=== PATIENT | male | born 1950 | race Caucasian/White ===

== ENCOUNTER 2018-03-08 08:40 | Emergency (ER) | payer OTHER ==
[~2018-03-08] VITALS: Ht 180.3 cm; Wt 90.7 kg
[~2018-03-08 08:40] MED LIST: ACET325 PO; DIAZ10 PO; Depo-Testo100 MG/1 M IM; Desyrel150 MG; EZET10-20 PO; IBUP800 PO; MARIJUANA; OMEP20ER PO; PRAV20 PO; Percocet 5-3251 EACH PO; ROSU10TA PO; TRAM50 PO; TRINATE PO
[2018-03-08 09:14] LABS: BASOPHILS ABSOLUTE AUTO 0.02 K/mm3 (0.00-0.23); BASOPHILS PERCENT AUTO 0 % (0-2); EOSINOPHILS ABSOLUTE AUTO 0.04 K/mm3 (0.00-0.68); EOSINOPHILS PERCENT AUTO 1 % (0-6); IMMATURE GRAN ABSOLUTE AUTO 0.01 K/mm3 (0.00-0.10); IMMATURE GRAN PERCENT AUTO 0 % (0-1); LYMPHOCYTES ABSOLUTE AUTO 0.72 K/mm3 (0.84-5.20); LYMPHOCYTES PERCENT AUTO 15 % (21-46); MONOCYTES ABSOLUTE AUTO 0.44 K/mm3 (0.16-1.47); MONOCYTES PERCENT AUTO 9 % (4-13); Mean Corpuscular HGB Conc 33.3 g/dL (31.5-36.5); Mean Platelet Volume 9.7 fL (9.1-12.4); NEUTROPHILS ABSOLUTE AUTO 3.71 K/mm3 (1.96-9.15); NEUTROPHILS PERCENT AUTO 75 % (41-73); Platelet Count 169 K/mm3 (150-400); RDW Coefficient Variation 18.1 % (11.7-14.2); RDW Standard Deviation 49.3 fL (35.1-46.3); Red Blood Cell Count 5.19 M/mm3 (4.30-5.90); White Blood Cell Count 4.94 K/mm3 (4.00-11.30)
[2018-03-08 09:28] LABS: Mean Corpuscular Volume 81 fL (80-100)
[2018-03-08 09:36] LABS: Albumin, Blood 3.8 g/dL (3.4-5.0); Albumin/Globulin Ratio 0.9 (0.8-1.8); Bilirubin, Total 0.7 mg/dL (0.1-1.0); Bun/Creatinine Ratio 16.7 (12.0-20.0); Calcium, Blood 9.2 mg/dL (8.5-10.1); Creatinine, Blood 1.56 mg/dL (0.60-1.20); Globulin, Blood 4.2 g/dL (2.2-4.0); Potassium, Blood 3.7 mmol/L (3.5-5.5)
[2018-03-08] MEDS ORDERED: CLOT10 SS (10:05)
[2018-03-08] MEDS ORDERED: ONDA8 PO (10:23)
[2018-03-08] MEDS ORDERED: MELA3 PO (10:23)
[2018-03-08] MEDS ORDERED: METO10 PO (10:24)
== END 2018-03-08 10:44 | disposition home or self-care (01) ==
LOC: ER 08:40
PROVIDERS: Emergency Medicine
DX: E86.0 Dehydration (principal); B37.0 Candidal stomatitis; R63.4 Abnormal weight loss; Z88.5 Allergy status to narcotic agent; Z88.6 Allergy status to analgesic agent; Z79.899 Other long term (current) drug therapy; Z87.891 Personal history of nicotine dependence; Z68.27 Body mass index [BMI] 27.0-27.9, adult
CPT/HCPCS: 36415; 71046; 80053; 85025; 96360; 99283-25; J7030

== ENCOUNTER 2018-04-19 12:08 | Observation (INO) | payer OTHER ==
[~2018-04-19] VITALS: Ht 177.8 cm; Wt 73.1 kg
[~2018-04-19 12:08] MED LIST changes: +CLOT10 SS; +MELA3 PO; +METO10 PO; +ONDA8 PO
[2018-04-19 13:11] LABS: BASOPHILS ABSOLUTE AUTO 0.02 K/mm3 (0.00-0.23); BASOPHILS PERCENT AUTO 1 % (0-2); EOSINOPHILS ABSOLUTE AUTO 0.04 K/mm3 (0.00-0.68); EOSINOPHILS PERCENT AUTO 1 % (0-6); Hematocrit 36.2 % (37.0-53.0); IMMATURE GRAN ABSOLUTE AUTO 0.03 K/mm3 (0.00-0.10); IMMATURE GRAN PERCENT AUTO 1 % (0-1); LYMPHOCYTES ABSOLUTE AUTO 0.43 K/mm3 (0.84-5.20); LYMPHOCYTES PERCENT AUTO 10 % (21-46); MONOCYTES ABSOLUTE AUTO 0.42 K/mm3 (0.16-1.47); MONOCYTES PERCENT AUTO 10 % (4-13); Mean Corpuscular HGB 28.2 pg (26.0-34.0); Mean Corpuscular HGB Conc 33.1 g/dL (31.5-36.5); Mean Corpuscular Volume 85 fL (80-100); Mean Platelet Volume 9.9 fL (9.1-12.4); NEUTROPHILS ABSOLUTE AUTO 3.34 K/mm3 (1.96-9.15); NEUTROPHILS PERCENT AUTO 78 % (41-73); Platelet Count 220 K/mm3 (150-400); RDW Coefficient Variation 21.9 % (11.7-14.2); RDW Standard Deviation 66.6 fL (35.1-46.3); Red Blood Cell Count 4.26 M/mm3 (4.30-5.90); White Blood Cell Count 4.28 K/mm3 (4.00-11.30)
[2018-04-19] MEDS ORDERED: OXYC1L PO (15:34)
[2018-04-19 15:39] LABS: Albumin, Blood 3.9 g/dL (3.4-5.0); Albumin/Globulin Ratio 0.8 (0.8-1.8); Bilirubin, Total 0.5 mg/dL (0.1-1.0); Bun/Creatinine Ratio 19.2 (12.0-20.0); Calcium, Blood 9.4 mg/dL (8.5-10.1); Creatinine, Blood 2.13 mg/dL (0.60-1.20); Globulin, Blood 4.6 g/dL (2.2-4.0); Potassium, Blood 4.4 mmol/L (3.5-5.5); Total Protein, Blood 8.5 g/dL (6.4-8.2)
--- NOTE | 2018-04-19 18:15 | NUR ---
SUMMARY PT ADMITTED FROM THE ER, PT IS ALERT AND ORIENTED, IS A ONE PERSON ASSIST, PT'S SPOUSE IN THE ROOM, PT TO HAVE A GI CONSULT FOR A FEEDING TUBE, NOT CALLED YET, PT HAS BEEN ORIENTED TO THE ROOM AND CALL SYSTEM, PT IS COOPERATIVE WITH CARE, VSS, NO ACUTE CHANGES, WILL CONT TO MONITOR
--- NOTE | 2018-04-20 04:07 | NUR ---
SHIFT SUMMARY: PT IS ALERT AND ORIENTED. PT IS CALM AND COOPERATIVE WITH CARE. PT CALLS APPROPRIATELY. STAYED IN THE ROOM OVERNIGHT. CALLED DR. ALMANZA TO GET SOME OF HIS HOME MEDICATIONS ORDERED. PT REPORTS LOW BACK PAIN, GAVE PRN OXYCODONE. PT DENIES NAUSEA, VOMITING, AND SOB. PT SLEPT MUCH OF THE NIGHT WHEN NOT DISTURBED. NO ACUTE CHANGES OR COMPLICATIONS THIS SHIFT. WILL REPORT TO DAY NURSE.
[2018-04-20 05:09] LABS: BASOPHILS ABSOLUTE AUTO 0.03 K/mm3 (0.00-0.23); BASOPHILS PERCENT AUTO 1 % (0-2); EOSINOPHILS ABSOLUTE AUTO 0.05 K/mm3 (0.00-0.68); EOSINOPHILS PERCENT AUTO 2 % (0-6); Hemoglobin 10.1 g/dL (13.5-17.5); IMMATURE GRAN ABSOLUTE AUTO 0.04 K/mm3 (0.00-0.10); IMMATURE GRAN PERCENT AUTO 1 % (0-1); LYMPHOCYTES PERCENT AUTO 9 % (21-46); MONOCYTES ABSOLUTE AUTO 0.41 K/mm3 (0.16-1.47); MONOCYTES PERCENT AUTO 12 % (4-13); Mean Corpuscular HGB 28.4 pg (26.0-34.0); Mean Corpuscular HGB Conc 33.7 g/dL (31.5-36.5); Mean Corpuscular Volume 84 fL (80-100); Mean Platelet Volume 9.9 fL (9.1-12.4); NEUTROPHILS PERCENT AUTO 76 % (41-73); Platelet Count 173 K/mm3 (150-400); RDW Coefficient Variation 21.6 % (11.7-14.2); RDW Standard Deviation 65.9 fL (35.1-46.3); Red Blood Cell Count 3.56 M/mm3 (4.30-5.90); White Blood Cell Count 3.43 K/mm3 (4.00-11.30)
[2018-04-20 05:46] LABS: Bun/Creatinine Ratio 21.1 (12.0-20.0); Calcium, Blood 8.2 mg/dL (8.5-10.1); Creatinine, Blood 1.8 mg/dL (0.60-1.20); Potassium, Blood 4.2 mmol/L (3.5-5.5)
--- NOTE | 2018-04-20 11:47 | NUR ---
PATIENT GAVE CLINICAL ATHLETIC INSTRUCTOR PERMISSION TO CARE FOR HIM ON 04/21/18.
--- NOTE | 2018-04-20 11:47 | NUR ---
Spiritual care visit conducted. Patient and spouse welcomed me into the room after I introduced myself and the department I am from. Patient shared his story and admitted the weariness emotionally because of the health battles he has faced. I facilitated a life review, encouraged self-care and reinforced helpful attitudes and practices. I also asked if patient had filled out an advance directive and patient said that he had not. His spouse said that she recently went through the process for herself and would be more than willing to help the patient fill out the advance directive form. I asked questions to make sure there was a good understanding of the importance and the process and there was a solid understanding. I gave the patient the advance directive forms and they said they would take the time to work through it. They thanked me for the visit and the information.
--- NOTE | 2018-04-20 17:45 | NUR ---
SUMMARY PT SITTING UP IN BED EATING HIS DINNER, SPOUSE REMAINS AT THE BEDSIDE, PT HAS BEEN PLEASANT AND COOPERATIVE WITH CARE, HAS WORKED WITH THERAPY TODAY WELL, DR HURTADO HAS BEEN IN TO SEE THE PT AND PLAN TO PLACE A PEG TUBE TOMORROW, PT TO BE NPO AFTER MIDNIGHT, PT MED PER EMAR FOR PAIN, VSS, NO ACUTE CHANGES, WILL CONT TO MONITOR
--- NOTE | 2018-04-21 04:41 | NUR ---
SHIFT SUMMARY NO CHANGES TO REPORT THIS SHIFT. PT HAS RESTED MOST OF THE NIGHT. HE DECLINES ANYTHING FOR HIS CHRONIC PAIN. PT HAS MOSTLY BEEN INDEPENDENT IN THE ROOM AND CALLS WHENEVER HE NEEDS ASSISTANCE. PLAN IS FOR PLACEMENT OF PEG TUBE TODAY. PT AWARE OF POC AND HAS BEEN NPO SINCE MIDNIGHT. PT S/O AT BEDSIDE T/O THE NIGHT. WILL CONTINUE TO MONITOR AND REPORT TO ONCOMING RN.
[2018-04-21 07:52] LABS: Bun/Creatinine Ratio 16.3 (12.0-20.0); Calcium, Blood 8.5 mg/dL (8.5-10.1); Creatinine, Blood 1.47 mg/dL (0.60-1.20); Potassium, Blood 4.2 mmol/L (3.5-5.5)
--- NOTE | 2018-04-21 17:30 | NUR ---
AT 1730 PATIENT LEFT FOR PEG TUBE PLACEMENT. NO ACUTE ISSUES NOTED UPON LEAVING FOR PROCEDURE.
--- NOTE | 2018-04-21 17:35 | NUR ---
BROUGHT TO [facility] FROM MED FLOOR. VSS ADMISSION STARTED FOR PROCEDURES
--- NOTE | 2018-04-21 18:11 | NUR ---
04/21/18 1811 Shahram Avila See Anesthesia recordO2 VIA N/C INTACT THROUGHOUT SEDATION/PROCEDURE. MONITOR INTACT WITH CONTINUOUS PULSE OXIMETRY AND INTERMITTENT BP. Patient to ENDO 1MONITOR INTACT WITH CONTINUOUS PULSE OXIMETRY AND INTERMITTENT BP.
--- NOTE | 2018-04-21 21:32 | NUR ---
phsyician correspondence 2015 PER SX ORDERS OK TO USE PEG TUBE AFTER 4 HOURS OF PLACEMENT. PT REQUESTING SOMETHING TO DRINK. NO ORDERS PLACED BY GI SURGEON STATING NPO. HOSPITALIST STATED TO CALL GI SURGEON FOR DIET ORDER VERIFICATION.
--- NOTE | 2018-04-21 21:33 | NUR ---
Physician Correspondence 2020 SPOKE WITH GI SURGEON TO CLARIFY DIET ORDER. SURGEON STATED COULD REMAIN ON LIMITED CLEAR LIQUIDS AT THIS TIME.
--- NOTE | 2018-04-22 04:30 | NUR ---
SHIFT SUMMARY A/O, ABLE TO MAKE NEEDS KNOWN. COOPERATIVE WITH CARE. CALLS AND ANSWERS QUESTIONS APPROPRIATELY. C/O PAIN TO ABDOMEN RATED 8-10/10 THROUGHOUT SHIFT; MEDICATED PER EMAR. RECEIVED NEW ORDER AT BEGINNING OF SHIFT R/T SEVERE PAIN; ORDER FOR FENTANYL 25-50 MG Q2H. EXPLAINED TO PT WHAT TIME HIS FEEDINGS WOULD BEGIN THIS SHIFT IF HE CHOSE TO START THEM AFTER 4 HOURS. PT STATED HE WOULD BE SLEEPING AND DID NOT WANT TO START AT THAT TIME. AT BEDSIDE. NO ACUTE CHANGES NOTED OTHER THAN SOME HYPOTENSION DURING POST-OP VITALS. BED IN LOWEST POSITION. CALL LIGHT AND BELONGINGS WITHIN REACH. WCTM. REPORT TO ONCOMING RN.
[2018-04-22 05:21] LABS: Hematocrit 29.7 % (37.0-53.0); Mean Corpuscular HGB 28.3 pg (26.0-34.0); Mean Corpuscular HGB Conc 33.7 g/dL (31.5-36.5); Mean Corpuscular Volume 84 fL (80-100); Mean Platelet Volume 9.7 fL (9.1-12.4); Platelet Count 151 K/mm3 (150-400); RDW Coefficient Variation 21.3 % (11.7-14.2); RDW Standard Deviation 64.6 fL (35.1-46.3); Red Blood Cell Count 3.53 M/mm3 (4.30-5.90); White Blood Cell Count 5.16 K/mm3 (4.00-11.30)
--- NOTE | 2018-04-22 05:27 | NUR ---
0520 PT STATED THAT HE DID NOT WANT TO START HIS TUBE FEEDINGS YET. STATED THAT HIS ABDOMEN IS TOO SORE. PAIN MANAGEMENT HAS BEEN DIFFICULT AND HAS NOT SLEPT WELL OVERNIGHT.
[2018-04-22 05:52] LABS: Magnesium, Blood 1.6 mg/dL (1.6-2.4)
[2018-04-22 05:53] LABS: Bun/Creatinine Ratio 14.7 (12.0-20.0); Calcium, Blood 8.2 mg/dL (8.5-10.1); Creatinine, Blood 1.5 mg/dL (0.60-1.20); Phosphorus, Blood 2.8 mg/dL (2.5-4.9); Potassium, Blood 4.3 mmol/L (3.5-5.5)
--- NOTE | 2018-04-22 16:39 | NUR ---
REMOVED ABDOMINAL BINDER, OKAYED BY DR. CORREIA.
--- NOTE | 2018-04-22 19:18 | NUR ---
shift summary PATIENT STARTED THE DAY WITH CONTINUOUS FEEDS. TOLERATED THIS WELL. STARTED THE 1600 TUBE FEED AND AFTER 10 MINUTES STATED HE FELT FULL. THIS RN HELD THE TUBE FEEDING, CHECKED FOR RESIDUAL, NOTED IT TO BE AROUND 20CC PULLED INTO SYRINGE. PER PATIENT REQUEST HELD REST OF 1600 TUBE FEEDING. WILL GIVE 2000 BOLUS PER SCHEDULE. PATIENT IS HAVING ABDOMINAL PAIN. MEDICATING PER EMAR. WORKING TO GET ON A SCHEDULE TO TRANSITION TO ORAL PAIN MEDS FOR PAIN RELIEF. REQUESTING AN ADVANCEMENT IN DIET. CONTINUING CLEAR LIQUIDS AT THIS TIME THEN WILL FOLLOW UP WITH HOSPITALIST IN AM REGARDING DIET. PATIENT ABLE TO MAKE NEEDS KNOWN. CONTINUING TO GIVE INFORMATION REGARDING TUBE FEEDING WITH PATIENT AND FAMILY. APPEARS MINMIAL UNDERSTANDING AT THIS TIME. WORKING TO INTRODUCE TOPICS AND INFORMATION. WILL CONTINUE TO GRADUALLY INCREASE KNOWLEDGE AND PROVIDE TEACHING.
--- NOTE | 2018-04-23 04:58 | NUR ---
SHIFT SUMMARY PT ADMITTED FOR ACUTE KIDNEY FAILURE. FULL CODE. CLEAR LIQUID DIET. 20G IV TO R AC. MEDS WHOLE WITH WATER. INDEPENDENT TO STANDBY ASSIST WITH TRANSFERS. ELEVATE HOB 45 DEGRESS. AMBULATE 3 TIMES PER DAY IN [place] WITH WLREINIER AND SBA. CBG Q 6 UNTIL 70-180 CONSISTENTLY. 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 PT HAS NOTED PROGRESSIVE DECLINE IN INTAKE WITH DEHYDRATION AND WEIGHT LOSS. PE TUBE PLACED AND WAS ON CONTINUOUS FEEDS BUT IS NOW ON BOLUS FEEDS IN AN ATTEMPT TO PREPARE THE PT TO DISCHARGE HOME. THE DIRECTIONS FOR THE BOLUS FEEDS ARE IN THE CHART. THE PT APPEARED TO BE VERY COMFORTABLY SO FAR THIS SHIFT. ADMINISTERED PAIN MEDS X2. PT AND SLEPT THROUGH TUBE FEEDING BOLUS FEEDS X2 AND CONTINUE TO SLEEP COMFORTABLY AT THIS TIME. NO APPARENT SIGNS OF ACUTE DISTRESS. ABLE TO MAKE NEEDS KNOWN AND CALL LIGHT IN REACH.
[2018-04-23] MEDS ORDERED: ACET325 PO (15:22)
--- NOTE | 2018-04-23 16:04 | NUR ---
DISCHARGE PATIENT DISCHARGED WITH VIA W/C ESCORT BY LEIGHTON GRAY. THIS RN WORKED WITH PATIENT AND REGARDING TUBE FEEDING. AND PATIENT WERE ABLE TO DEMONSTRATE ABILITIES. VERBALIZED UNDERSTANDING. WE DISCUSSED THE EDUCATION PROVIDED BY THE MARKETING PLANNER REGARDING THE FEEDINGS REQUIRED OF THE PATIENT. STATED THIS IS SUPPLEMENTAL FEEDING AND PATIENT CAN EAT TOLERATED. USE TUBE FEEDING SUPPLEMENTATION. PATIENT HAD NO FURTHER QUESTIONS. ENCOURAGED CALLING. TALKING WITH HOME HEALTH NURSE AND FOLLOWING UP WITH [facility] IF THEY HAVE ANY QUESTIONS REGARDING HIS CARE. THEY VERBALIZED UNDERSTANDING OF THIS.
== END 2018-04-23 15:43 | disposition home health service (06) ==
LOC: ER 12:08 → MEDS 12:09 → ER 16:38 → MEDS 16:43 → ER 16:43 → MEDS 16:45
PROVIDERS: Physician Assistant; Student in an Organized Health Care Education/Training Program; ADMIT Internal Medicine
PROC: 0DH63UZ Insertion of Feeding Device into Stomach, Percutaneous Approach (ICD-10-PCS; principal; 2018-04-21 18:25)
DX: R13.10 Dysphagia, unspecified (principal); R62.7 Adult failure to thrive; R63.4 Abnormal weight loss; E46 Unspecified protein-calorie malnutrition; K44.9 Diaphragmatic hernia without obstruction or gangrene; N17.9 Acute kidney failure, unspecified; N18.9 Chronic kidney disease, unspecified; C76.0 Malignant neoplasm of head, face and neck; Z74.09 Other reduced mobility
CPT/HCPCS: 36415; 80048; 80053; 82947; 83735; 84100; 85025; 85027; 90686; 96374; 96375; 96376; 97116; 97161; 99284; C1769; G0378; J0690; J2405; J3010; J3370; J7120

== ENCOUNTER 2018-09-08 16:11 | Emergency (ER) | payer OTHER ==
[~2018-09-08] VITALS: Ht 180.3 cm; Wt 69.0 kg
[~2018-09-08 16:11] MED LIST changes: +OXYC1L PO
[2018-09-08 18:16] LABS: BASOPHILS ABSOLUTE AUTO 0.03 K/mm3 (0.00-0.23); BASOPHILS PERCENT AUTO 1 % (0-2); EOSINOPHILS ABSOLUTE AUTO 0.16 K/mm3 (0.00-0.68); EOSINOPHILS PERCENT AUTO 3 % (0-6); Hematocrit 33.7 % (37.0-53.0); Hemoglobin 11.2 g/dL (13.5-17.5); IMMATURE GRAN ABSOLUTE AUTO 0.01 K/mm3 (0.00-0.10); IMMATURE GRAN PERCENT AUTO 0 % (0-1); LYMPHOCYTES ABSOLUTE AUTO 0.83 K/mm3 (0.84-5.20); LYMPHOCYTES PERCENT AUTO 16 % (21-46); MONOCYTES ABSOLUTE AUTO 0.46 K/mm3 (0.16-1.47); MONOCYTES PERCENT AUTO 9 % (4-13); Mean Corpuscular HGB 32.3 pg (26.0-34.0); Mean Corpuscular HGB Conc 33.2 g/dL (31.5-36.5); Mean Corpuscular Volume 97 fL (80-100); Mean Platelet Volume 9.9 fL (9.1-12.4); NEUTROPHILS ABSOLUTE AUTO 3.69 K/mm3 (1.96-9.15); NEUTROPHILS PERCENT AUTO 71 % (41-73); Platelet Count 261 K/mm3 (150-400); RDW Coefficient Variation 12.6 % (11.7-14.2); RDW Standard Deviation 44.7 fL (35.1-46.3); Red Blood Cell Count 3.47 M/mm3 (4.30-5.90); White Blood Cell Count 5.18 K/mm3 (4.00-11.30)
[2018-09-08 18:50] LABS: Alanine Aminotransfer (ALT/SGP 35 U/L (12-78); Albumin, Blood 4.2 g/dL (3.4-5.0); Albumin/Globulin Ratio 1.1 (0.8-1.8); Alk Phos 185 U/L (50-136); Anion Gap 5 mmol/L (6-16); Aspartate Aminotrans (AST/SGOT 28 U/L (12-37); Bilirubin, Total 0.3 mg/dL (0.1-1.0); Blood Urea Nitrogen 29 mg/dL (8-24); Bun/Creatinine Ratio 22.1 (12.0-20.0); CO2, Blood 27 mmol/L (21-32); Calcium, Blood 9.3 mg/dL (8.5-10.1); Chloride, Blood 104 mmol/L (98-108); Creatinine, Blood 1.31 mg/dL (0.60-1.20); Globulin, Blood 3.9 g/dL (2.2-4.0); Glomerular Filtration Rate 58 (60-); Glucose, Blood 112 mg/dL (70-99); Potassium, Blood 3.8 mmol/L (3.5-5.5); Sodium, Blood 136 mmol/L (136-145); Total Protein, Blood 8.1 g/dL (6.4-8.2); Troponin I <0.015 ng/mL (0.000-0.040)
[2018-09-13] MEDS ORDERED: Pravachol80 MG PO (14:53)
[2018-09-13] MEDS ORDERED: OMEPRAZOLE20 MG PO (14:53)
[2018-09-13] MEDS ORDERED: IBUP800 PO (14:54)
[2018-09-13] MEDS ORDERED: DIAZ10 (14:54)
[2018-09-13] MEDS ORDERED: TRAZ150T57 PO (14:55)
[2018-09-13] MEDS ORDERED: VOLTAREN100 GM (14:55)
[2018-09-13] MEDS ORDERED: MELATONIN5 M1 PO (14:55)
[2018-09-13] MEDS ORDERED: Depo-Testos200 MG/ML IM (14:56)
[2018-09-13] MEDS ORDERED: Multiple Vitam1 EAC1 PO (14:56)
[2018-09-13] MEDS ORDERED: METO10 PO (14:56)
[2018-09-13] MEDS ORDERED: ONDA8 PO (14:56)
[2018-09-13] MEDS ORDERED: OXYC10ER PO (14:57)
[2018-09-13] MEDS ORDERED: QVAR REDIHALE10.6 G1 INH (14:58)
[2018-09-13] MEDS ORDERED: Clonazepam0.5 MG PO (14:58)
[2018-11-04] MEDS ORDERED: OMEP20ER PO (09:00)
[2018-11-04] MEDS ORDERED: Pravachol80 MG PO (09:02)
[2018-11-04] MEDS ORDERED: IBUP800 PO (09:03)
[2018-11-04] MEDS ORDERED: Diazepam5 MG PO (09:05)
[2018-11-04] MEDS ORDERED: Trazodone HCl300 MG PO (09:05)
[2018-11-04] MEDS ORDERED: MELA3 PO (09:06)
[2018-11-04] MEDS ORDERED: Voltaren100 GM TOP (09:07)
[2018-11-04] MEDS ORDERED: Depo-Testos200 MG/ML IM (09:08)
[2018-11-04] MEDS ORDERED: Hair, Skin & N1 EACH PO (09:09)
[2018-11-04] MEDS ORDERED: Zofran4 MG PO (09:11)
[2018-11-04] MEDS ORDERED: METO10 PO (09:14)
[2018-11-04] MEDS ORDERED: OXYC10TA19 PO (09:16)
[2018-11-04] MEDS ORDERED: CLON.5 PO (09:32)
== END 2018-09-08 19:42 | disposition home or self-care (01) ==
LOC: ER 16:11
PROVIDERS: Emergency Medicine
DX: R55 Syncope and collapse (principal); M54.9 Dorsalgia, unspecified; G89.29 Other chronic pain; Z93.1 Gastrostomy status; Z88.0 Allergy status to penicillin; Z88.5 Allergy status to narcotic agent; Z88.6 Allergy status to analgesic agent; Z79.899 Other long term (current) drug therapy; Z87.891 Personal history of nicotine dependence
CPT/HCPCS: 36415; 70450; 74018; 80053; 84484; 85025; 93005; 93010; 99284-25; J7030

== ENCOUNTER 2018-09-20 08:24 | Day surgery (SDC) | payer OTHER ==
[~2018-09-20] VITALS: Ht 180.3 cm; Wt 70.3 kg
[~2018-09-20 08:24] MED LIST changes: +Clonazepam0.5 MG PO; +DIAZ10; +Depo-Testos200 MG/ML IM; +MELATONIN5 M1 PO; +Multiple Vitam1 EAC1 PO; +OMEPRAZOLE20 MG PO; +OXYC10ER PO; +Pravachol80 MG PO; +QVAR REDIHALE10.6 G1 INH; +TRAZ150T57 PO; +VOLTAREN100 GM
--- NOTE | 2018-09-20 09:27 | NUR ---
09/20/18 0927 Shellie Caal PT. DENIES PAIN BUT VERBALIZES HAVING A SORE THROAT SINCE HIS DIAGNOSIS OF CANCER.
[2018-11-04] MEDS ORDERED: OMEP20ER PO (09:00)
[2018-11-04] MEDS ORDERED: Pravachol80 MG PO (09:02)
[2018-11-04] MEDS ORDERED: IBUP800 PO (09:03)
[2018-11-04] MEDS ORDERED: Trazodone HCl300 MG PO (09:05)
[2018-11-04] MEDS ORDERED: Diazepam5 MG PO (09:05)
[2018-11-04] MEDS ORDERED: MELA3 PO (09:06)
[2018-11-04] MEDS ORDERED: Voltaren100 GM TOP (09:07)
[2018-11-04] MEDS ORDERED: Depo-Testos200 MG/ML IM (09:08)
[2018-11-04] MEDS ORDERED: Hair, Skin & N1 EACH PO (09:09)
[2018-11-04] MEDS ORDERED: Zofran4 MG PO (09:11)
[2018-11-04] MEDS ORDERED: METO10 PO (09:14)
[2018-11-04] MEDS ORDERED: OXYC10TA19 PO (09:16)
[2018-11-04] MEDS ORDERED: CLON.5 PO (09:32)
== END 2018-09-20 09:58 | disposition home or self-care (01) ==
LOC: ORSCSDS 08:24
PROVIDERS: Student in an Organized Health Care Education/Training Program
PROC: 0DB98ZX Excision of Duodenum, Via Natural or Artificial Opening Endoscopic, Diagnostic (ICD-10-PCS; principal; 2018-09-20 11:15)
PROC: 0DB68ZX Excision of Stomach, Via Natural or Artificial Opening Endoscopic, Diagnostic (ICD-10-PCS; principal; 2018-09-20 11:15)
DX: R10.9 Unspecified abdominal pain (principal); C09.9 Malignant neoplasm of tonsil, unspecified; K21.9 Gastro-esophageal reflux disease without esophagitis; E78.5 Hyperlipidemia, unspecified; K44.9 Diaphragmatic hernia without obstruction or gangrene; K29.70 Gastritis, unspecified, without bleeding; K29.80 Duodenitis without bleeding; J44.9 Chronic obstructive pulmonary disease, unspecified; Z87.891 Personal history of nicotine dependence; Z79.899 Other long term (current) drug therapy
CPT/HCPCS: 88305; 88342; J2704; J7120

== ENCOUNTER 2018-10-11 09:53 | Day surgery (SDC) | payer OTHER ==
[~2018-10-11] VITALS: Ht 182.9 cm; Wt 71.5 kg
--- NOTE | 2018-10-11 10:51 | NUR ---
10/11/18 1051 Gui Sims IV ATTEMPTED IN LEFT HAND AND LEFT FOREARM AND WOULD NOT THREAD. IV STARTED IN LEFT FOREARM AND PATIENT TOLERATED WELL.
--- NOTE | 2018-10-11 12:46 | NUR ---
10/11/18 1246 Perla Bonds RECIEVED REPORT FROM [facility]
--- NOTE | 2018-10-11 13:20 | NUR ---
10/11/18 1320 Perla Bonds PT INTO RECLINER WITHOUT DIFFICULTY. PT DENIES PAIN AND NAUSEA. PT TOLERATING PO FLUIDS AND SNACKS WELL. JE AT CHAIRSIDE.
[2018-11-04] MEDS ORDERED: OMEP20ER PO (09:00)
[2018-11-04] MEDS ORDERED: Pravachol80 MG PO (09:02)
[2018-11-04] MEDS ORDERED: IBUP800 PO (09:03)
[2018-11-04] MEDS ORDERED: Trazodone HCl300 MG PO (09:05)
[2018-11-04] MEDS ORDERED: Diazepam5 MG PO (09:05)
[2018-11-04] MEDS ORDERED: MELA3 PO (09:06)
[2018-11-04] MEDS ORDERED: Voltaren100 GM TOP (09:07)
[2018-11-04] MEDS ORDERED: Depo-Testos200 MG/ML IM (09:08)
[2018-11-04] MEDS ORDERED: Hair, Skin & N1 EACH PO (09:09)
[2018-11-04] MEDS ORDERED: Zofran4 MG PO (09:11)
[2018-11-04] MEDS ORDERED: METO10 PO (09:14)
[2018-11-04] MEDS ORDERED: OXYC10TA19 PO (09:16)
[2018-11-04] MEDS ORDERED: CLON.5 PO (09:32)
== END 2018-10-11 13:30 | disposition home or self-care (01) ==
LOC: ORSCSDS 09:53
PROVIDERS: Otolaryngology
PROC: 0CBM8ZX Excision of Pharynx, Via Natural or Artificial Opening Endoscopic, Diagnostic (ICD-10-PCS; principal; 2018-10-11 11:00)
DX: C09.9 Malignant neoplasm of tonsil, unspecified (principal); Z87.891 Personal history of nicotine dependence; J44.9 Chronic obstructive pulmonary disease, unspecified; K21.9 Gastro-esophageal reflux disease without esophagitis; F41.8 Other specified anxiety disorders; Z79.899 Other long term (current) drug therapy
CPT/HCPCS: 88305; J1100; J2405; J2704; J3010; J7120

== ENCOUNTER 2018-11-08 13:19 | Day surgery (SDC) | payer OTHER ==
[~2018-11-08] VITALS: Ht 177.8 cm; Wt 72.6 kg
[~2018-11-08 13:19] MED LIST changes: +CLON.5 PO; +Diazepam5 MG PO; +Hair, Skin & N1 EACH PO; +OXYC10TA19 PO; +Trazodone HCl300 MG PO; +Voltaren100 GM TOP; +Zofran4 MG PO
--- NOTE | 2018-11-08 13:55 | NUR ---
History, Chart, Medications and Allergies reviewed before start of procedure. Patient confirms NPO status and agrees with scheduled surgery. Lungs clear T/O to Auscultation. Pre-Op teaching done. Pt verbalizes understanding. Patient States Post-Procedure ride home has been arranged.
--- NOTE | 2018-11-08 15:55 | NUR ---
11/08/18 1555 Killian Yanez 3-LEAD EKG REVIEWED WITH PHYSICIAN PRIOR TO START OF PROCEDURE.PATIENT CONFIRMS NPO STATUS AND AGREES WITH SCHEDULED PROCEDURE.History, Chart, Medications and Allergies reviewed before start of procedure. MONITOR INTACT WITH CONTINUOUS PULSE OXIMETRY AND INTERMITTENT BP. O2 VIA N/C INTACT THROUGHOUT SEDATION/PROCEDURE. Bite Block Placed
== END 2018-11-08 22:50 | disposition home or self-care (01) ==
LOC: ORSCMMR 13:19 → ORD 14:45 → ORSCMMR 14:45
PROVIDERS: Student in an Organized Health Care Education/Training Program
PROC: 0DP64UZ Removal of Feeding Device from Stomach, Percutaneous Endoscopic Approach (ICD-10-PCS; principal; 2018-11-08 14:45)
DX: Z85.89 Personal history of malignant neoplasm of other organs and systems (principal); J44.9 Chronic obstructive pulmonary disease, unspecified; Z87.891 Personal history of nicotine dependence; K21.9 Gastro-esophageal reflux disease without esophagitis; Z79.899 Other long term (current) drug therapy
CPT/HCPCS: J2704; J7120

== ENCOUNTER 2018-12-24 07:55 | Observation (INO) | payer OTHER ==
[~2018-12-24] VITALS: Ht 177.8 cm; Wt 68.0 kg
[2018-12-24 08:27] LABS: BASOPHILS ABSOLUTE AUTO 0.03 K/mm3 (0.00-0.23); BASOPHILS PERCENT AUTO 1 % (0-2); EOSINOPHILS ABSOLUTE AUTO 0.14 K/mm3 (0.00-0.68); EOSINOPHILS PERCENT AUTO 3 % (0-6); Hematocrit 37.4 % (37.0-53.0); Hemoglobin 12.7 g/dL (13.5-17.5); IMMATURE GRAN ABSOLUTE AUTO 0.02 K/mm3 (0.00-0.10); IMMATURE GRAN PERCENT AUTO 0 % (0-1); LYMPHOCYTES ABSOLUTE AUTO 0.64 K/mm3 (0.84-5.20); LYMPHOCYTES PERCENT AUTO 14 % (21-46); MONOCYTES ABSOLUTE AUTO 0.45 K/mm3 (0.16-1.47); MONOCYTES PERCENT AUTO 10 % (4-13); Mean Corpuscular HGB 31.8 pg (26.0-34.0); Mean Corpuscular Volume 94 fL (80-100); Mean Platelet Volume 9.2 fL (9.1-12.4); NEUTROPHILS ABSOLUTE AUTO 3.35 K/mm3 (1.96-9.15); NEUTROPHILS PERCENT AUTO 73 % (41-73); Platelet Count 242 K/mm3 (150-400); RDW Coefficient Variation 12.3 % (11.7-14.2); RDW Standard Deviation 42.8 fL (35.1-46.3); White Blood Cell Count 4.63 K/mm3 (4.00-11.30)
[2018-12-24 08:48] LABS: Alanine Aminotransfer (ALT/SGP 28 U/L (12-78); Albumin, Blood 3.5 g/dL (3.4-5.0); Albumin/Globulin Ratio 0.9 (0.8-1.8); Alk Phos 130 U/L (50-136); Anion Gap 7 mmol/L (6-16); Aspartate Aminotrans (AST/SGOT 34 U/L (12-37); Bilirubin, Total 0.3 mg/dL (0.1-1.0); Blood Urea Nitrogen 26 mg/dL (8-24); Bun/Creatinine Ratio 16.8 (12.0-20.0); CO2, Blood 24 mmol/L (21-32); Calcium, Blood 9.3 mg/dL (8.5-10.1); Chloride, Blood 105 mmol/L (98-108); Creatinine, Blood 1.55 mg/dL (0.60-1.20); Ethanol (Alcohol), Blood, Med <3 mg/dL; Globulin, Blood 3.8 g/dL (2.2-4.0); Glomerular Filtration Rate 47 (60-); Glucose, Blood 104 mg/dL (70-99); Potassium, Blood 3.7 mmol/L (3.5-5.5); Salicylate 3.8 mg/dL (2.8-20.0); Sodium, Blood 136 mmol/L (136-145); Total Protein, Blood 7.3 g/dL (6.4-8.2)
[2018-12-24 08:49] LABS: Acetaminophen, Random <2.0 ug/mL (10.0-30.0)
[2018-12-24] MEDS ORDERED: Clonazepam0.5 MG PO (10:51)
[2018-12-24 13:23] LABS: Source, Urine Clean Catch
[2018-12-24] MEDS ORDERED: QVAR REDIHALE10.6 G1 INH (13:25)
[2018-12-24 13:29] LABS: Bilirubin, Urine Neg (Neg); Blood, Urine Neg (Neg); Glucose Qualitative, Urine Neg (Neg); Ketones, Urine Neg (Neg); Leukocyte Esterase, Urine 1+ (Neg); Nitrite, Urine Neg (Neg); Protein, Urine Neg (Neg); Specific Gravity, Urine 1.015 (1.003-1.022); Urobilinogen, Urine NORM (Normal)
[2018-12-24 13:36] LABS: Appearance, Urine Clear (Clear); Color, Urine Yellow (P-Yellow)
[2018-12-24 13:37] LABS: Hyaline Casts 0-2 /lpf (0-2); Red Blood Cells, Urine 0-2 /hpf (0-2)
[2018-12-24 13:38] LABS: Bacteria Few /hpf; Squamous Epithelial Cells Rare /hpf (Few)
[2018-12-24 13:43] LABS: U Amphetamine Screen DETECTED; U Barbituate Screen Not Detected; U Benzodiazapine Screen Not Detected; U Buprenorphine Screen Not Detected; U Cannabinoids Screen DETECTED; U Cocaine Screen Not Detected; U Methadone Screen Not Detected; U Methamphetamine Screen DETECTED; U Opiates Screen Not Detected; U Oxycodone Screen Not Detected; U Phencyclidine Screen Not Detected; U Propoxyphene Screen Not Detected
[2018-12-26] MEDS ORDERED: Seroquel Xr50 MG PO (18:33)
== END 2018-12-26 18:38 | disposition home or self-care (01) ==
LOC: ER 07:55 → EOR 07:56
PROVIDERS: ADMIT Emergency Medicine
DX: T42.4X2A Poisoning by benzodiazepines, intentional self-harm, initial encounter (principal); F33.3 Major depressive disorder, recurrent, severe with psychotic symptoms; F15.10 Other stimulant abuse, uncomplicated; F12.10 Cannabis abuse, uncomplicated; Z88.5 Allergy status to narcotic agent; Z88.0 Allergy status to penicillin; Z88.2 Allergy status to sulfonamides; Z88.8 Allergy status to other drugs, medicaments and biological substances; Z79.899 Other long term (current) drug therapy; Z87.891 Personal history of nicotine dependence
CPT/HCPCS: 80053; 81001; 85025; 87086; 93005; 93010; 96360; 96372-59; 99285-25; G0378; G0480; J1200; J1630; J2060; J7030; Q3014

== ENCOUNTER 2019-02-15 08:53 | Emergency (ER) | payer OTHER ==
[~2019-02-15] VITALS: Ht 180.3 cm; Wt 77.1 kg
[~2019-02-15 08:53] MED LIST changes: +Seroquel Xr50 MG PO
[2019-02-15 10:04] LABS: BASOPHILS ABSOLUTE AUTO 0.03 K/mm3 (0.00-0.23); BASOPHILS PERCENT AUTO 0 % (0-2); EOSINOPHILS ABSOLUTE AUTO 0.02 K/mm3 (0.00-0.68); EOSINOPHILS PERCENT AUTO 0 % (0-6); Hematocrit 37.8 % (37.0-53.0); Hemoglobin 13.6 g/dL (13.5-17.5); IMMATURE GRAN ABSOLUTE AUTO 0.05 K/mm3 (0.00-0.10); IMMATURE GRAN PERCENT AUTO 1 % (0-1); LYMPHOCYTES ABSOLUTE AUTO 0.62 K/mm3 (0.84-5.20); LYMPHOCYTES PERCENT AUTO 8 % (21-46); MONOCYTES ABSOLUTE AUTO 0.43 K/mm3 (0.16-1.47); MONOCYTES PERCENT AUTO 6 % (4-13); Mean Corpuscular HGB 30.9 pg (26.0-34.0); Mean Corpuscular Volume 86 fL (80-100); Mean Platelet Volume 9.1 fL (9.1-12.4); NEUTROPHILS ABSOLUTE AUTO 6.34 K/mm3 (1.96-9.15); NEUTROPHILS PERCENT AUTO 85 % (41-73); Platelet Count 284 K/mm3 (150-400); RDW Coefficient Variation 12.3 % (11.7-14.2); RDW Standard Deviation 38.8 fL (35.1-46.3); White Blood Cell Count 7.49 K/mm3 (4.00-11.30)
[2019-02-15 10:20] LABS: Alanine Aminotransfer (ALT/SGP 27 U/L (12-78); Alk Phos 128 U/L (50-136); Anion Gap 11 mmol/L (6-16); Aspartate Aminotrans (AST/SGOT 40 U/L (12-37); Bilirubin, Total 0.6 mg/dL (0.1-1.0); Blood Urea Nitrogen 15 mg/dL (8-24); Bun/Creatinine Ratio 14.2 (12.0-20.0); CO2, Blood 20 mmol/L (21-32); Calcium, Blood 9.1 mg/dL (8.5-10.1); Chloride, Blood 93 mmol/L (98-108); Creatinine, Blood 1.06 mg/dL (0.60-1.20); Globulin, Blood 3.9 g/dL (2.2-4.0); Glomerular Filtration Rate >60 (60-); Glucose, Blood 112 mg/dL (70-99); Potassium, Blood 4.3 mmol/L (3.5-5.5); Sodium, Blood 124 mmol/L (136-145); Total Protein, Blood 7.9 g/dL (6.4-8.2)
[2019-02-15 11:21] LABS: U Amphetamine Screen Not Detected; U Barbituate Screen Not Detected; U Benzodiazapine Screen Not Detected; U Buprenorphine Screen Not Detected; U Cannabinoids Screen DETECTED; U Cocaine Screen Not Detected; U Methadone Screen Not Detected; U Methamphetamine Screen Not Detected; U Opiates Screen Not Detected; U Oxycodone Screen Not Detected; U Phencyclidine Screen Not Detected; U Propoxyphene Screen Not Detected
[2019-02-15 11:57] LABS: Source, Urine Voided
[2019-02-15 12:02] LABS: Bilirubin, Urine Neg (Neg); Blood, Urine Neg (Neg); Glucose Qualitative, Urine Neg (Neg); Ketones, Urine 2+ (Neg); Leukocyte Esterase, Urine Neg (Neg); Nitrite, Urine Neg (Neg); Protein, Urine Neg (Neg); Urobilinogen, Urine NORM (Normal)
[2019-02-15 12:07] LABS: Appearance, Urine Clear (Clear); Color, Urine Yellow (P-Yellow)
[2019-02-15] MEDS ORDERED: PROM25 PO (13:15)
[2019-02-15] MEDS ORDERED: Motion Sickness25 M1 PO (13:15)
== END 2019-02-15 14:25 | disposition home or self-care (01) ==
LOC: ER 08:53
PROVIDERS: Emergency Medicine
DX: H81.399 Other peripheral vertigo, unspecified ear (principal); E87.1 Hypo-osmolality and hyponatremia; R33.9 Retention of urine, unspecified; Z85.828 Personal history of other malignant neoplasm of skin; Z85.21 Personal history of malignant neoplasm of larynx; Z87.891 Personal history of nicotine dependence; Z88.5 Allergy status to narcotic agent; Z88.0 Allergy status to penicillin; Z88.2 Allergy status to sulfonamides; Z88.8 Allergy status to other drugs, medicaments and biological substances; Z88.1 Allergy status to other antibiotic agents; Z79.899 Other long term (current) drug therapy
CPT/HCPCS: 36415; 71046; 80053; 81003; 83735; 85025; 93005; 93010; 96361; 96374; 96375; 99285-25; J2060; J2405; J7030

== ENCOUNTER 2022-03-07 06:06 | Day surgery (SDC) | payer OTHER ==
[~2022-03-07] VITALS: Ht 177.8 cm; Wt 90.7 kg
[~2022-03-07 06:06] MED LIST changes: +ALBU90OI INH; +Aspir 8181 MG PO; +CYCL10 PO; +DEPO-TESTO200 MG/15 IM; +Motion Sickness25 M1 PO; +PROM25 PO; +SPIRIVA RESPIMAT4 G2 INH; +VOLTAREN ARTHRI20 GM TOP
[2022-03-07] MEDS ORDERED: POTA10T PO (06:45)
[2022-03-07] MEDS ORDERED: BREO ELLIPTA 11 EAC1 IH (06:45)
--- NOTE | 2022-03-07 09:11 | NUR ---
[id number] PLACEMENT OF [facility]IPORT IS APPROPRIATE, PATIENT OK TO DISCHARGE HOME.
[2022-03-11] MEDS ORDERED: Vibramycin100 MG PO (07:59)
[2022-03-11] MEDS ORDERED: PRED20 PO (07:59)
== END 2022-03-07 09:20 | disposition home or self-care (01) ==
LOC: ORSCSDS 06:06
PROVIDERS: Surgery
PROC: B5131ZA Fluoroscopy of Right Jugular Veins using Low Osmolar Contrast, Guidance (ICD-10-PCS; principal; 2022-03-07 07:30)
PROC: 05HM33Z Insertion of Infusion Device into Right Internal Jugular Vein, Percutaneous Approach (ICD-10-PCS; principal; 2022-03-07 07:30)
DX: C09.9 Malignant neoplasm of tonsil, unspecified (principal); J45.909 Unspecified asthma, uncomplicated; K21.9 Gastro-esophageal reflux disease without esophagitis; Z87.891 Personal history of nicotine dependence; Z79.899 Other long term (current) drug therapy
CPT/HCPCS: 77001; C1788; J0690; J1642; J2001; J2250; J2704; J2795; J3010

== ENCOUNTER → 2022-10-31 | Outpatient (CLI) | payer OTHER | LOC: LAB 11:59 | DX: R74.8 Abnormal levels of other serum enzymes (principal) ==

== ENCOUNTER → 2022-10-31 | Outpatient (CLI) | payer OTHER | LOC: LAB 09:23 | DX: R10.11 Right upper quadrant pain (principal) ==

== ENCOUNTER → 2023-01-05 | Outpatient (CLI) | payer OTHER ==
[~2023-01-05] MED LIST changes: +BREO ELLIPTA 11 EAC1 IH; +POTA10T PO; +PRED20 PO; +Vibramycin100 MG PO
== END ==
LOC: LAB SHORT 09:36 → LAB 09:36
DX: R05.2 Subacute cough (principal)
CPT/HCPCS: 87070; 87205